=== PATIENT | male | born 1960 | race Caucasian/White ===

== ENCOUNTER 2018-08-15 05:33 | Outpatient (CLI) | payer BC ==
[~2018-08-15] VITALS: Ht 188 cm; Wt 147.0 kg
[2018-08-15] MEDS ORDERED: AMLO10TA7 PO (14:19)
[2018-08-15] MEDS ORDERED: CARV25TA PO (14:19)
[2018-08-15] MEDS ORDERED: OMEG-86 PO (14:19)
[2018-08-15] MEDS ORDERED: ATOR20TA66 PO (14:19)
[2018-08-15] MEDS ORDERED: BENA20TA7 PO (14:19)
[2018-08-15] MEDS ORDERED: BICA50TA47 PO (14:19)
[2018-08-15] MEDS ORDERED: GEMF600T8 PO (14:19)
== END 2018-08-15 14:24 | disposition home or self-care (01) ==
LOC: PREOP 05:33
PROVIDERS: ATTEND Radiology Radiation Oncology
DX: Z01.818 Encounter for other preprocedural examination (principal)